=== PATIENT | female | born 1985 | race Two or more races ===

== ENCOUNTER 2018-12-19 16:03 | Observation (INO) | payer MEDICAID ==
[~2018-12-19] VITALS: Ht 167.6 cm; Wt 97.5 kg
[2018-12-19 16:21] VITALS: BP 111/52
[2018-12-19] MEDS ORDERED: GABA300C10 PO (18:02)
[2018-12-19] MEDS ORDERED: PREN-96 PO (18:03)
== END 2018-12-19 18:07 | disposition home or self-care (01) | DRG 566 ==
LOC: EDBD 16:03 → ER 16:07 → LDRP 16:44
PROVIDERS: ADMIT Obstetrics & Gynecology; ATTEND Obstetrics & Gynecology
DX: O26.893 Other specified pregnancy related conditions, third trimester (principal); R10.9 Unspecified abdominal pain; Z53.29 Procedure and treatment not carried out because of patient's decision for other reasons; Z3A.29 29 weeks gestation of pregnancy
CPT/HCPCS: 59025; 81002; 99284; G0378